=== PATIENT | male | born 1950 | race Caucasian/White ===

== ENCOUNTER 2021-12-15 15:27 | Outpatient (CLI) | payer OTHER, SELFPAY ==
[2021-12-15 12:39] LABS: Chloride* 103 mmol/L (96-114); Potassium* 4.4 mmol/L (3.6-5.1); Sodium* 139 mmol/L (135-149)
[2021-12-15 12:42] LABS: Carbon Dioxide* 25 mmol/L (20-32); Creatinine* 0.8 mg/dL (0.5-1.5); Estimated Glomerular Filt Rate 95 ml/min
[2021-12-15 12:43] LABS: Blood Urea Nitrogen* 23 mg/dL (7-30); Calcium* 9.6 mg/dL (8.4-10.6); Glucose* 96 mg/dL (60-115); Uric Acid* 3.3 mg/dL (2.2-8.4)
[2021-12-15 13:15] LABS: PSA Diagnostic* 0.13 ng/mL (0.10-4.00)
== END 2021-12-15 15:28 | disposition home or self-care (01) ==
PROVIDERS: PCP Internal Medicine; Visit Provider Internal Medicine
DX: Z00.00 Encounter for general adult medical examination without abnormal findings (principal); M10.9 Gout, unspecified; I10 Essential (primary) hypertension; C61 Malignant neoplasm of prostate
CPT/HCPCS: 80048; 84153; 84550

== ENCOUNTER 2022-01-23 13:42 | Outpatient (RCR) | payer OTHER, MEDICARE, SELFPAY ==
--- NOTE | 2022-01-24 11:10 | PT.OPEX ---
[facility] Eval Start: 01/23/22 15:29 Freq: Status: Active Protocol: Document 01/23/22 15:30 SASHA (Rec: 01/23/22 15:33 SASHA [id number]) E-signed By Luis Miller DPT, MS Physical Therapy Outpatient Evaluation Insurance Information Recert Due Date 04/23/22 Insurance Name Medicare B Medical Diagnosis Hip pain, right; right thigh pain Subjective Subjective Pt is an otherwise healthy 71 y.o. male who presents to PT with c/o of chronic B (R>L) hip pain of insidious origin 6 -8 months ago. Pt describes sharp, deep ache across lateral R hip with sleeping on his side and occasionally 1- 2x per week while walking later in the day. Describes active lifestyle walking 12-14 ,000 steps per day and working out on his elliptical and rowing machine for 30-40 minutes total. Finds himself limping with extended walking. Concerned PT won?t be helpful since he has mild - mod hip OA and due to active lifestyle . PMH includes skin CA currently in remission. AGGR factors: extended walking, sleeping B sides. ALLEV factors: ice, rest. Pain Comments -08/19 Current Work Status Retired Occupation Retired [employer] professor Precautions Therapy Limitations/Systems Review Not Limited Objective Functional Test Performed & Score LEFS 22 Assessment Assessment/Impression Pt displays signs and symptoms consistent with R greater trochanteric bursitis and ITB syndrome. + recreation of pain with palpation to R greater trochanter with 1+ edema. Objectively pt displays decreased B LE flexibility, B (R>L) LE and core weakness, and imbalance. Notable weakness found in B gluteus medius. He responded well to stretching, balance and strengthening exercises with minimal hip sxs following today?s session. He will benefit from continued skilled therapy to address these limitations. Primary Functional Limitations Extended walking, sleeping B sides Plan of Care Rehabilitation Potential Excellent Physical Therapy Goals Short-term goals to be completed in 4 weeks: 1. Pt will display improved overall B LE strength as evidenced by performing >12 SLR of good quality to improve jose l to daily activities. 2. Pt will report improved quality of sleep waking <2x per night due to R hip pain. Long-term goals to be completed in 10 weeks: 1. Pt will be independent and compliant with HEP 2. Pt will display improved R hip ABD and ext strength >/= 4 +/5 to improve ability to exercise and perform daily activities. 3. Pt will be able to return to walking >15 minutes with no elevation in R hip pain to improve tolerance to daily activities. 4. Pt will report >75% improvement in LEFS questionnaire to significantly improve jose l to daily activities. Coordination/Communication With Referral Source Treatment Plan/Direct Interventions Neuromuscular Re-ed, Therapeutic Exercises Frequency/Duration 1x per week for at least 6-10 visits, decreasing visit frequency, as able. Patient Will Be Discharged From Therapy Completion of LTG(s),Skills Plateau,Independent w/HEP, Independently Progressing Evaluation Billing Untimed Code Treatment Minutes 28 Complexity Moderate Certification Information Initial Certification Date 01/23/22 Ending Certification Date 04/23/22 Provider Signature Shows Agreement With POC & Medical Necessity Physician Signature & Date Requested Please Sign/Date Here Physician Comment/Change : Physician NPI Number #
== END 2022-09-28 23:59 | disposition home or self-care (01) ==
PROVIDERS: PCP Internal Medicine; Visit Provider Internal Medicine
DX: M25.551 Pain in right hip (principal); M25.561 Pain in right knee; Z51.89 Encounter for other specified aftercare
CPT/HCPCS: 97110; 97162

== ENCOUNTER 2022-05-17 05:21 | Emergency (ER) | payer OTHER, SELFPAY ==
[2022-05-17] VITALS (17 sets, daily range): BP systolic 117–132; BP diastolic 74–85; PULSE 47–53; TEMP 36.6; O2SAT 97–99
--- NOTE | 2022-05-17 06:00 | CRLHL7_ITS ---
For Patients: As a result of the Century Cures Act, medical imaging exams and procedure reports are released immediately into your electronic medical record. You may view this report before your referring provider. If you have questions, please contact your health care provider. Indication: Chest pain Technique: Chest 2 views Comparison: Chest x-ray 09/12/2022 Findings/Impression: Cardiovascular and mediastinum: Normal heart size. Atherosclerosis. Lungs and pleural spaces: Lungs are clear. No sign of infiltrate or mass. No sign of pleural effusion. No pneumothorax. Mild hyperinflation. Bones and soft tissues: Attachment screw at the inferior margin of the left glenoid. Dictated by Foster Kimble MD @ 05/17/2022 7:09:57 AM (Electronically Signed)
--- NOTE | 2022-05-17 06:02 | ED.GENADULT ---
HPI - General Adult General Chief complaint: Chest Pain Stated complaint: Chest pain Time Seen by Provider: 05/17/22 05:22 Source: patient and family Mode of arrival: ambulatory History of Present Illness HPI narrative: 72-year-old nonsmoker with no prior cardiac history with a history of hypertension presents with chest pain 2/10. Chest pain started at around 4:30 a.m. this morning, not yesterday evening as noted in the nursing notes. Chest pain was present upon awakening. Patient is an early riser and got up in was planning to have coffee when he noted pain in the left arm and chest area. It was accompanied by a feeling of significant nausea and slight lightheadedness. This dissipated quickly but then his right chest began to ache. There was no shortness of breath, no syncope, no feelings of irregular heart rate or abnormal heart rhythm. He took some Tylenol and his pain has improved significantly. Pain is currently 2/10 was probably a 6 to 7/10 at most early this morning. Pain does not radiate. No prior history of similar symptoms, no prior cardiac history. No prior stress testing. Has not taken aspirin. No history of DVT nor PE, does not take any anticoagulants. No recent chest trauma. Cannot reproduce chest pain with palpation. No fevers or recent illness. No bowel changes, no recent medication changes. He does have a family history in grandparents but at advanced ages. Socially, he is a nonsmoker, denies significant alcohol intake, also exercises daily. Past medical history notable for hypertension, gout. Surgical history is notable for cervical spine surgery, appendectomy, shoulder surgery, prostate cancer surgery. He has also had lithotripsy for kidney stones. His own medications are atenolol for hypertension and allopurinol for gout. ROS is notable for the cardiac and chest symptoms as described above, otherwise notable for the nausea which has now resolved. Otherwise negative times 12 systems. Related Data Home Medications Medication Instructions Recorded Confirmed multivitamin 1 tab PO QAM 12/19/21 12/19/21 Previous Rx's Medication Instructions Recorded atenolol 50 mg tablet 50 mg PO QDAY #90 tabs 12/19/21 allopurinol 100 mg tablet 400 mg PO DAILY #360 tabs 03/23/22 Allergies Allergy/AdvReac Type Severity Reaction Status Date / Time No Known Drug Allergies Allergy Verified 12/19/21 07:41 [facility] Medical History History of dysthymia History of migraine Transient global amnesia Surgical History Bladder neck contracture Carpal tunnel syndrome of left wrist (2019) History of appendectomy History of basal cell carcinoma of skin History of cervical spinal surgery History of left inguinal hernia repair History of radical prostatectomy History of shoulder surgery History of squamous cell carcinoma of skin Family History Mother Colon cancer Breast cancer Uterine cancer Social History Smoking Status: Never smoker Do you use any of these nicotine containing products: None Second hand tobacco smoke exposure: No How often do you have a drink containing alcohol: never AUDIT-C Alcohol total score: 0 Little interest or pleasure in doing things: not at all Feeling down, depressed, or hopeless: not at all Exam Const: Vital Signs, click to edit/add: Vital Signs - 24 hr 05/17/22 05:25 05/17/22 05:30 05/17/22 05:31 Temperature 97.8 F Pulse Rate Pulse Rate [Pulse Oximeter] 53 L Blood Pressure 124/85 132/84 Blood Pressure [Le ft Upper Arm] 124/85 Pulse Oximetry 97 Oxygen Delivery Me thod Room Air 05/17/22 05:34 05/17/22 05:45 05/17/22 05:47 Temperature Pulse Rate 51 L 49 L 49 L Pulse Rate [Pulse Oximeter] Blood Pressure 130/83 Blood Pressure [Le ft Upper Arm] Pulse Oximetry 97 98 98 Oxygen Delivery Me thod 05/17/22 06:00 05/17/22 06:02 05/17/22 06:17 Temperature Pulse Rate 49 L 52 L 48 L Pulse Rate [Pulse Oximeter] Blood Pressure 125/78 Blood Pressure [Le ft Upper Arm] Pulse Oximetry 97 99 98 Oxygen Delivery Me thod Documenting provider has reviewed patient's vital signs: yes Common normals: no apparent distress General appearance: cooperative, comfortable and well kempt Other: Good historian HENMT: Common normals: normocephalic and head/scalp atraumatic Head and scalp: normocephalic and atraumatic Face and sinus: normal facial exam Mouth: oral and palatal mucosa normal Throat: posterior oropharynx normal Eye: Common normals: conjunctivae normal General eye: normal appearance of both eyes Conjunctiva: conjunctiva(e) normal Neck & C-Spine: Common normals: full ROM and no lymphadenopathy Chest: Common normals: inspection of chest normal and palpation of chest normal Resp: Common normals: normal respiratory effort, no use of accessory muscles and clear to auscultation bilaterally Effort & inspection: able to speak in complete sentences Auscultation: clear to auscultation bilaterally Cardio: Common normals: regular rate, regular rhythm, S1 normal heart sound, S2 normal heart sound, no murmurs and peripheral pulses 2+ throughout Rate: regular rate Rhythm: regular rhythm Heart sounds: S1 normal and S2 normal Peripheral pulses: pulses 2+ throughout GI: Common normals: Normal to inspection, nondistended, normoactive bowel sounds present, soft to palpation, non-tender, no hepatosplenomegaly and no masses Palpation: soft and no hepatosplenomegaly Extremity: Common normals: normal to inspection and no pedal edema Neuro: Gait (neuro): normal gait Motor exam: strength 5/5 throughout, no tremor noted and no movement abnormalities noted Psych: Appearance: well kempt Activity/motor behavior: appropriate eye contact Mood and affect: euthymic mood Insight: insight good Judgement: judgment good Skin: Common normals: no rashes or lesions noted General skin exam: no rashes or lesions noted Course Vital Signs Vital signs: Initial Vital Signs Temperature 97.8 F 05/17/22 05:25 Temperature Source Temporal Artery Scan 05/17/22 05:25 Pulse Rate 53 L 05/17/22 05:25 Blood Pressure 124/85 05/17/22 05:25 Blood Pressure Mean 98 05/17/22 05:25 Pulse Oximetry 97 05/17/22 05:25 Oxygen Delivery Method 05/17/22 05:25 Vital Signs Temperature 97.8 F 05/17/22 05:25 Pulse Rate 53 L 05/17/22 05:25 Blood Pressure 124/85 05/17/22 05:25 Pulse Oximetry 97 05/17/22 05:25 Oxygen Delivery Method 05/17/22 05:25 Temperature 97.8 F 03/08/23 05:25 Pulse Rate 48 L 05/17/22 06:17 Blood Pressure 125/78 05/17/22 06:02 Pulse Oximetry 98 05/17/22 06:17 Oxygen Delivery Method 05/17/22 05:25 Medical Decision Making MDM Narrative Medical decision making narrative: Patient does have risk factor of hypertension age and gender for heart disease. Recommend cardiac enzymes, EKG, chest x-ray and cardiac monitoring. He will receive aspirin. Since his pain has almost completely resolved, will withhold nitroglycerin but patient informed that if his pain does worsen to let us know and I would like to try this intervention. Patient is noted to be bradycardic as low as 47 on the monitors, tend to hover around 50. This could be some mild symptomatic bradycardia. If his troponins are negative, we should consider a reduction of his atenolol and primary care follow-up. He would benefit from an outpatient stress test as well. Update: Repeat troponin is also negative at 3+ hours from symptom onset. His symptoms have completely resolved. He remains bradycardic from 48 to the low 50s. We discussed lab findings, x-ray findings, all reassuring. I let him know that I do think that his symptoms this morning were related to mildly symptomatic bradycardia and I would like for him to stop his atenolol and monitor her symptoms for a few days, following up with his primary care provider to further discuss options. He will let me know that he does like being on the atenolol because his migraines have improved significantly. Propranolol may be a better option or Coreg instead. I do trust his primary care provider's judgment in making changes to this if they see fit. Patient will record his blood pressures and bring these to his follow-up appointment. Lab Data Lab results reviewed: Yes I reviewed the patient's lab results Labs: Lab Results 05/17/22 05/17/22 05/17/22 Range/Units 05:35 05:35 05:35 D-Dimer Quant (PE/DVT) 0.30 (0.00-0.50) ug/ml Sodium 140 (135-149) mmol/L Potassium 3.9 (3.6-5.1) mmol/L Chloride 106 (96-114) mmol/L Carbon Dioxide 29 (20-32) mmol/L BUN 17 (7-30) mg/dL Creatinine 0.8 (0.5-1.5) mg/dL Estimated GFR 94 ml/min Glucose 103 (60-115) mg/dL Calcium 9.0 (8.4-10.6) mg/dL Total Bilirubin 0.8 (0.1-1.5) mg/dL AST 32 (12-35) U/L ALT 26 (4-50) U/L Alkaline Phosphatase 75 (40-150) U/L Troponin I < 0.01 L (0.01-0.04) ng/mL C-Reactive Protein < 0.5 L (0.5-1.0) mg/dL NT-Pro-B Natriuret Pep 62 pg/mL Total Protein 7.2 (6.0-8.3) g/dL Albumin 4.4 (3.3-5.0) g/dL POC Troponin I 0.00 L (0.01-0.04) ng/ml 05/17/22 Range/Units 07:15 D-Dimer Quant (PE/DVT) (0.00-0.50) ug/ml Sodium (135-149) mmol/L Potassium (3.6-5.1) mmol/L Chloride (96-114) mmol/L Carbon Dioxide (20-32) mmol/L BUN (7-30) mg/dL Creatinine (0.5-1.5) mg/dL Estimated GFR ml/min Glucose (60-115) mg/dL Calcium (8.4-10.6) mg/dL Total Bilirubin (0.1-1.5) mg/dL AST (12-35) U/L ALT (4-50) U/L Alkaline Phosphatase (40-150) U/L Troponin I (0.01-0.04) ng/mL C-Reactive Protein (0.5-1.0) mg/dL NT-Pro-B Natriuret Pep pg/mL Total Protein (6.0-8.3) g/dL Albumin (3.3-5.0) g/dL POC Troponin I 0.00 L (0.01-0.04) ng/ml ECG Data Attestation: I personally reviewed and interpreted this ECG as follows: Prior ECG tracings: not available for review Interpretation: Sinus bradycardia with rate 51. Normal axis. Good R-wave progression. No ST or T-wave abnormalities. Discharge Plan Discharge Clinical Impression: Bradycardia, Chest pain Patient Disposition: Home w/ Parent or Adult Condition: Improved Instructions: Chest Pain (DC) Additional Instructions: As we discussed, there are no signs of a heart attack today. This is good news. We also did not see any signs of kidney disease, electrolyte abnormality, anemia, infection, heart failure, blood clots or other worrisome finding. As we discussed, I do think that your symptoms this morning are concerning and they are most likely consistent with side effects of your atenolol. I do understand that it has been helpful for migraine prevention for you but it may no longer be the right dose or medication from this family to treat your blood pressure. I would like for you to stop the medicine for the next week and monitor your symptoms and blood pressure twice daily at home. I would like for you to make a follow-up with your primary care provider sometime in the next 3-7 days to recheck your symptoms and decide on management of your blood pressure. For most, these symptoms do continue for as long as they continue to take atenolol. If you have severe worsening of symptoms, please come back to the emergency department. Activity Level: No Restrictions and Activity as Tolerated Discharge Diet: Regular Prescriptions: No Action multivitamin Tablet 1 tab PO QAM atenolol 50 mg tablet 50 mg PO QDAY Qty: 90 3RF allopurinol 100 mg tablet 400 mg PO DAILY Qty: 360 3RF Follow Up/Referrals: Rose Mary Sneed MD [Primary Care Provider] - 7 Days (Blood pressure recheck, bradycardia) Stand Alone Forms: [employer] Info Instructions
[2022-05-17] MEDS: ASPIRIN 81 MG TAB.CHEW 324 MG PO (06:05)
[2022-05-17 06:07] LABS: Albumin* 4.4 g/dL (3.3-5.0); Chloride* 106 mmol/L (96-114)
[2022-05-17 06:08] LABS: Potassium* 3.9 mmol/L (3.6-5.1); Sodium* 140 mmol/L (135-149)
[2022-05-17 06:10] LABS: Creatinine* 0.8 mg/dL (0.5-1.5); Estimated Glomerular Filt Rate 94 ml/min
[2022-05-17 06:11] LABS: Alanine Aminotransferase* 26 U/L (4-50); Alkaline Phosphatase* 75 U/L (40-150); Aspartate Amino Transferase* 32 U/L (12-35); Bilirubin Total* 0.8 mg/dL (0.1-1.5); Blood Urea Nitrogen* 17 mg/dL (7-30); Carbon Dioxide* 29 mmol/L (20-32); Glucose* 103 mg/dL (60-115); Total Protein* 7.2 g/dL (6.0-8.3)
[2022-05-17 06:17] LABS: C Reactive Protein* < 0.5 mg/dL (0.5-1.0)
[2022-05-17 06:24] LABS: NT Pro B Type NatriureticPept* 62 pg/mL; Troponin I* < 0.01 ng/mL (0.01-0.04)
--- NOTE | 2022-05-17 07:27 | ED.NURSE ---
dr bergeron in room explaining plan. poc trop 0.00.
== END 2022-05-17 07:40 | disposition home or self-care (01) ==
PROVIDERS: Emergency Provider Family Medicine; PCP Internal Medicine
DX: R00.1 Bradycardia, unspecified (principal); R07.9 Chest pain, unspecified
CPT/HCPCS: 36415; 71046; 80053; 83880; 84484; 85379; 86140; 93005; 99283; 99284; 99285; A9270

== ENCOUNTER 2022-05-30 13:37 | Outpatient (CLI) | payer OTHER, SELFPAY ==
--- OUTSIDE RECORDS SUMMARY | 2022-05-30 13:39 | XMS_ITS | Continuity of Care Document ---
:1950 Author Organization [facility] Address [address] [place] [address] Phone Care Team Providers Name Role Phone Will Maximo HOGAN Unavailable Unavailable Advance Directives Directive Yes / No Effective Date File Name No Information Encounters Encounter Practice Location Reason(s) Diagnoses Date Provider Provide rs Description For Visit Copied on Encounter [facility] -2021 [facility] [address] [facility], [facility], [address] [facility] [place], [place], [place], [id number], [id number], [place]. [place] tel:[phone] tel:[phone] Family History Family Member Type Diagnosis Age At Onset No Information Payers Payer name Insurance type Covered republican ID Authorization(s ) No Information Social History Type Description Quantity Date Captured Comments Sex Male Smoking Status No Information Chief Complaint And Reason For Visit No Information Reason For Referral Reason For Referral No Information Plan Of Treatment Date Type Action Status No Information History Of Present Illness Encounter Date Complaint History Of Present I llness No Information Functional Status Date Functional Assessment No Information Instructions Date Instruction Additional Informati on No Information Assessments Type Assessment Date No Information Patient Care Teams Name Effective Dates (start - stop) Status M embers No Information
[2022-05-30 14:56] VITALS: BP 120/80; PULSE 73; RESP 18
--- NOTE | 2022-05-30 15:10 | W.PM.STED ---
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 He is exercised for a total time of 9 minutes, achieved a metabolic equivalent of 10.5 Mets with a maximum heart rate of 143 which is 113% of the target, conditioning was felt to be excellent, he did not develop chest pain shortness of breath or any other anginal equivalent symptoms. Review of the tracing post test shows no ST wave changes suggestive of ischemia, and he did not have any dysrhythmias Impression: Negative electrographic portion of stress echo test. Follow up suggested: Await for echo images these will be read by Cardiology, clinical correlation with these will be needed, patient left this testing facility in excellent condition. No complication
== END 2022-05-30 15:00 | disposition home or self-care (01) ==
LOC: STRESS 13:38
PROVIDERS: PCP Internal Medicine; Visit Provider Family Medicine
DX: R07.9 Chest pain, unspecified (principal)
CPT/HCPCS: 93016; 93325; 93351

== ENCOUNTER 2022-06-01 09:11 | Emergency (ER) | payer OTHER, SELFPAY ==
[2022-06-01] VITALS (8 sets, daily range): BP systolic 121–167; BP diastolic 67–93; PULSE 59–71; RESP 14–18; TEMP 36.7; O2SAT 97–99; BMI 26.5
[2022-06-01 09:48] LABS: Basophils Absolute Auto 0.02 K/uL (0.00-0.30); Basophils Percent Auto 0.3 % (0.0-3.0); Eosinophils Percent Auto 1.6 % (0.0-7.0); Hematocrit 44.2 % (37.0-53.0); Hemoglobin* 14.6 gm/dL (13.5-17.5); Immature Granulocytes Abs Auto 0.01 K/uL (0.00-0.30); Immature Granulocytes Pct Auto 0.2 %; Lymphocytes Percent Auto 27.3 % (20-44); Mean Corpuscular HGB Conc 33 gm/dL (32-36); Mean Corpuscular Hemoglobin 31 pg (26-34); Mean Corpuscular Volume 93 fL (80-100); Neutrophils Absolute Auto 3.84 K/uL (1.7-7.0); Neutrophils Percent Auto 61.6 % (42.0-72.0); RDW Coefficient of Variation % 12.5 % (11.5-15.5); Red Blood Count 4.77 m/uL (4.30-5.90); White Blood Count* 6.23 K/uL (4.50-11.00)
--- NOTE | 2022-06-01 10:01 | CRLHL7_ITS ---
For Patients: As a result of the Century Cures Act, medical imaging exams and procedure reports are released immediately into your electronic medical record. You may view this report before your referring provider. If you have questions, please contact your health care provider. Indication: Dilated ascending aorta, recurring chest and back pain Technique: Volumetric multidetector CT images of the chest were obtained after the administration of IV contrast. 95 cc Isovue 370 low osmolar intravenous contrast Comparison: None available. Findings: The thoracic inlet and thyroid gland are unremarkable. The thoracic aorta demonstrates aneurysmal dilatation and is otherwise unopacified measuring up to 4.9 x 4.8 centimeters in greatest dimension. There is no central filling defect to suggest pulmonary embolism. There is no mediastinal, hilar or axillary adenopathy. There is mild central bronchial thickening. There is bibasilar atelectasis and parenchymal scar. There is no dense consolidation, effusion or pneumothorax. There is no evidence of pulmonary mass or suspicious pulmonary nodule. The partially visualized upper abdomen demonstrates cystic change of the right kidney and left liver lobe. The thoracic vertebral body heights are grossly maintained with minimal endplate Schmorl`s defects. There is no significant spondylolisthesis or displaced fracture. Impression: Demonstration of ascending thoracic aortic aneurysm measuring 4.9 x 4.8 centimeters. The thoracic aorta is not opacified secondary to contrast bolus timing. If there is concern for filling defect within the aorta, follow-up with CTA of the aorta. Otherwise, no evidence of filling defect within the pulmonary vasculature to suggest pulmonary embolus. Minimal basilar atelectasis. No dense consolidation. Please note that all CT scans at this facility use dose modulation, iterative reconstruction, and/or weight-based dosing when appropriate to reduce radiation dose to as low as reasonably achievable. Dictated by Ricky Peacock MD @ 06/01/2022 1:22:39 PM (Electronically Signed)
--- NOTE | 2022-06-01 10:03 | ED.GENADULT ---
HPI - General Adult General Time Seen by Provider: 10:03 Date Seen: 06/01/22 Chief complaint: Chest Pain Stated complaint: chest pain Time Seen by Provider: 06/01/22 09:58 Source: patient Mode of arrival: ambulatory Limitations: no limitations History of Present Illness HPI narrative: Tommie is a 72-year-old male past medical history includes cervical spine surgery, left-sided shoulder surgery, nephrolithiasis, erectile dysfunction, hypertension, prostate cancer presents emergency department via with chest pain. Patient states that around 4:30 a.m. this morning he was having some coffee and does developed some substernal chest pain, dull ache, radiated to his left shoulder, this lasted about 1 hour, shoulder pain lasted a few seconds, he denied any diaphoresis, nausea vomiting, shortness of breath, neck pain jaw pain or headache. No lightheadedness or dizziness. Patient was seen here 2 weeks ago for the same, again at 4:30 a.m. prior to having any coffee, developed some substernal chest pain rated crosses chest, to his left arm, he did get diaphoretic and was nauseous. EKG, troponins were negative he was set up for an outpatient stress Echo which was normal, he did have a dilated ascending aortic 4.5 cm which is chronic. Patient denies any pain at this time, yesterday he did well, he did have an episode 2 days after his visit from the emergency department 2 weeks ago some nonexertional substernal chest pain. No history of any CAD or stroke. No other concerns at this time. Related Data Home Medications Medication Instructions Recorded Confirmed multivitamin 1 tab PO QAM 12/19/21 05/22/22 nitroglycerin 0.4 mg sublingual 0.4 mg sublingual DAILY PRN 05/22/22 05/22/22 tablet Previous Rx's Medication Instructions Recorded allopurinol 100 mg tablet 400 mg PO DAILY #360 tabs 03/23/22 Allergies Allergy/AdvReac Type Severity Reaction Status Date / Time No Known Drug Allergies Allergy Verified 05/22/22 09:55 Review of Systems Status of ROS: Reports: 10 or more systems reviewed and unremarkable except as noted in History and below [facility] Medical History History of dysthymia ?Z86.59 - Personal history of other mental and behavioral disorders (ICD-10) History of migraine ?Z86.69 - Personal history of other diseases of the nervous system and sense organs (ICD-10) Transient global amnesia ?G45.4 - Transient global amnesia (ICD-10) Surgical History Bladder neck contracture ?N32.0 - Bladder-neck obstruction (ICD-10) Carpal tunnel syndrome of left wrist (2019) ?G56.02 - Carpal tunnel syndrome, left upper limb (ICD-10) History of appendectomy ?Z90.49 - Acquired absence of other specified parts of digestive tract (ICD-10) History of basal cell carcinoma of skin ?Z85.828 - Personal history of other malignant neoplasm of skin (ICD-10) History of cervical spinal surgery ?Z98.890 - Other specified postprocedural states (ICD-10) History of left inguinal hernia repair ?Z98.890 - Other specified postprocedural states (ICD-10) ?Z87.19 - Personal history of other diseases of the digestive system (ICD-10) History of radical prostatectomy ?Z90.79 - Acquired absence of other genital organ(s) (ICD-10) History of shoulder surgery ?Z98.890 - Other specified postprocedural states (ICD-10) History of squamous cell carcinoma of skin ?Z85.828 - Personal history of other malignant neoplasm of skin (ICD-10) Family History Mother Colon cancer Breast cancer Uterine cancer Social History Smoking Status: Never smoker Do you use any of these nicotine containing products: None Second hand tobacco smoke exposure: No How often do you have a drink containing alcohol: never AUDIT-C Alcohol total score: 0 Non-prescribed substance use: denies use Little interest or pleasure in doing things: not at all Feeling down, depressed, or hopeless: not at all Exam Narrative: Exam Narrative: General: No obvious distress sitting comfortably, nontoxic in appearance HEENT: Tympanic membranes within normal limits bilateral oropharynx is clear moist, pupils equal round reactive to light Neck: Supple full range of motion, nontender to palpation Lungs: Clear to auscultation bilaterally Heart: Normal sinus rhythm S1-S2 Abdomen: Soft nontender Muscle skeletal: +5 strength upper and lower extremity Neuro: Alert awake and oriented x3 Const: Vital Signs, click to edit/add: Vital Signs - 24 hr 06/01/22 09:17 06/01/22 10:03 06/01/22 10:32 Temperature 98.1 F Pulse Rate 65 Pulse Rate [Right Pulse Oximeter] 61 Respiratory Rate 18 Blood Pressure 133/85 Blood Pressure [Ri ght Upper Arm] 167/67 H Pulse Oximetry 97 97 99 Oxygen Delivery Me thod Room Air 06/01/22 11:02 Temperature Pulse Rate 59 L Pulse Rate [Right Pulse Oximeter] Respiratory Rate 14 Blood Pressure 125/86 Blood Pressure [Ri ght Upper Arm] Pulse Oximetry 98 Oxygen Delivery Me thod Course Course Hospital Course: 9:30 AM: AIDET performed, workup will include EKG, troponin, CBC, CMP, INR and imaging including CTA chest angiogram based on recent stress echo showing dilated ascending aorta, patient is pain-free at this time, his EKG shows a normal sinus rhythm, low-voltage QRS, cannot rule out anterior infarct seen on previous, no acute ectopy or ST changes compared to previous. Differential diagnosis include CAD/mi/PE/pneumothorax/pneumonia, aortic dissection, STEMI versus NSTEMI as well as pericarditis myocarditis chest wall pain GERD esophageal rupture. Reevaluation(s) Reevaluation #1: EKG was unchanged from previous, troponin negative, plan would be to do a CTA chest PE angiogram rule out dissection which is less likely since patient is pain free, was able to speak to Cardiology [facility] over the next few days he will be set up for a CT coronary artery imaging, he reviewed his recent stress echo which is high quality, his 30 day risk is low, this was discussed with patient and . Plan to repeat troponin I. Patient is still pain free, D-dimer normal at 0.32, CBC metabolic panel unchanged from previous. EKG showed a normal sinus rhythm, cannot rule out anterior infarct age undetermined but seen on previous, no acute changes from 2 weeks ago. Time: 11:12 Reevaluation #2: CTA chest angiogram: Impression: Demonstration of ascending thoracic aortic aneurysm measuring 4.9 x 4.8 centimeters. The thoracic aorta is not opacified secondary to contrast bolus timing. If there is concern for filling defect within the aorta, follow-up with CTA of the aorta. Otherwise, no evidence of filling defect within the pulmonary vasculature to suggest pulmonary embolus. Minimal basilar atelectasis. No dense consolidation. HEART score for major cardiac events: History: +1 EC Age:+2 Risk factors: +1 Initial Troponin: 0 4 points, moderate score, risk of MACE 12-16% Patient and updated on his imaging results, no concerns regarding dissection at this time or PE, patient doing well, ECG was unchanged, D-dimer negative, Troponin was negative, repeat showed no changes, spoke with Cardiology [facility], he reviewed the recent stress echo, HEART score, labs and imaging, recommended discharge as patient is low risk on stress echo, he will reach out to his primary and to set up a outpatient coronary artery CT scan at [facility] and cardiology follow up. This was discussed with patient and and they were in agreement with discharge, he should also follow up with history primary care provider in the next 7-10 days. . Time: 13:30 Vital Signs Vital signs: Initial Vital Signs Respiratory Effort Normal, Spontaneous, Non-Labored 06/01/22 09:11 Respiratory Depth Normal 06/01/22 09:11 Respiratory Pattern Normal 06/01/22 09:11 Vital Signs Temperature 98.1 F 06/01/22 09:17 Pulse Rate 61 06/01/22 09:17 Respiratory Rate 18 06/01/22 09:17 Blood Pressure 167/67 H 06/01/22 09:17 Pulse Oximetry 97 06/01/22 09:17 Oxygen Delivery Method Room Air 06/01/22 09:17 Temperature 98.1 F 06/01/22 09:17 Pulse Rate 71 06/01/22 13:32 Respiratory Rate 14 06/01/22 11:02 Blood Pressure 140/79 H 06/01/22 13:32 Pulse Oximetry 97 06/01/22 13:32 Oxygen Delivery Method Room Air 06/01/22 09:17 Medical Decision Making Lab Data Labs: Lab Results 06/01/22 06/01/22 06/01/22 Range/Units 08:25 09:25 12:20 WBC 6.23 (4.50-11.00) K/uL RBC 4.77 (4.30-5.90) m/uL Hgb 14.6 (13.5-17.5) gm/dL Hct 44.2 (37.0-53.0) % MCV 93 (80-100) fL MCH 31 (26-34) pg MCHC 33 (32-36) gm/dL RDW Coeff of Dionne 12.5 (11.5-15.5) % Plt Count 220 (140-440) K/uL Neut % (Auto) 61.6 (42.0-72.0) % Lymph % (Auto) 27.3 (20-44) % [place] % (Auto) 9.0 (0.0-11.0) % Eos % (Auto) 1.6 (0.0-7.0) % Baso % (Auto) 0.3 (0.0-3.0) % Neut # (Auto) 3.84 (1.7-7.0) K/uL Lymph # (Auto) 1.70 (0.90-2.90) K/uL [place] # (Auto) 0.60 (0.00-0.90) K/UL Eos # (Auto) 0.10 (0.00-0.50) K/uL Baso # (Auto) 0.02 (0.00-0.30) K/uL Diff Slide Review Acceptable Review (Acceptable) INR 0.93 (0.91-1.10) D-Dimer Quant (PE/DVT) 0.32 (0.00-0.50) ug/ml Sodium 140 (135-149) mmol/L Potassium 4.4 (3.6-5.1) mmol/L Chloride 106 (96-114) mmol/L Carbon Dioxide 27 (20-32) mmol/L BUN 16 (7-30) mg/dL Creatinine 0.8 (0.5-1.5) mg/dL Estimated Creat Clear 64.60 Estimated GFR 94 ml/min Glucose 90 (60-115) mg/dL Calcium 9.2 (8.4-10.6) mg/dL Total Bilirubin 0.8 (0.1-1.5) mg/dL AST 39 H (12-35) U/L ALT 24 (4-50) U/L Alkaline Phosphatase 65 (40-150) U/L Troponin I < 0.01 L (0.01-0.04) ng/mL Total Protein 7.6 (6.0-8.3) g/dL Albumin 4.5 (3.3-5.0) g/dL POC Troponin I 0.00 L (0.01-0.04) ng/ml Discharge Plan Discharge Clinical Impression: Chest pain, Aneurysm, thoracic aortic Patient Disposition: Home, Self-Care Condition: Improved Instructions: Chest Pain (ED) Additional Instructions: Follow-up with [facility] Cardiology for outpatient CT coronary arteries imaging, Follow-up with primary care provider over the next 7-10 days. Return precautions given. Activity Level: No Restrictions Prescriptions: No Action multivitamin Tablet 1 tab PO QAM nitroglycerin 0.4 mg tablet, sublingual 0.4 mg sublingual DAILY PRN allopurinol 100 mg tablet 400 mg PO DAILY Qty: 360 3RF Follow Up/Referrals: Rose Mary Sneed MD [Primary Care Provider] - Stand Alone Forms: [employer] Info Instructions
[2022-06-01 10:09] LABS: Albumin* 4.5 g/dL (3.3-5.0); Chloride* 106 mmol/L (96-114); Sodium* 140 mmol/L (135-149)
[2022-06-01 10:10] LABS: Potassium* 4.4 mmol/L (3.6-5.1)
[2022-06-01 10:12] LABS: Alanine Aminotransferase* 24 U/L (4-50); Alkaline Phosphatase* 65 U/L (40-150); Aspartate Amino Transferase* 39 U/L (12-35); Bilirubin Total* 0.8 mg/dL (0.1-1.5); Blood Urea Nitrogen* 16 mg/dL (7-30); Carbon Dioxide* 27 mmol/L (20-32); Creatinine* 0.8 mg/dL (0.5-1.5); Estimated Glomerular Filt Rate 94 ml/min; Glucose* 90 mg/dL (60-115); Total Protein* 7.6 g/dL (6.0-8.3)
[2022-06-01 10:13] LABS: Calcium* 9.2 mg/dL (8.4-10.6)
[2022-06-01 10:17] LABS: Platelet Count* 220 K/uL (140-440); Slide Review Reflex Yes
[2022-06-01 10:21] LABS: Slide Review Acceptable Review (Acceptable)
[2022-06-01 10:42] LABS: INR 0.93 (0.91-1.10); Prothrombin Time 13.1 Seconds
--- OUTSIDE RECORDS SUMMARY | 2022-06-01 10:46 | XMS_ITS | Continuity of Care Document ---
Author Name Unknown Organization [facility] Address [address] [place] [id number] Phone Care Team Providers Care House Manager Name Role Phone Will MD RUSH, Maximo Unavailable Unavailabl e Advance Directives Directive Yes / No Effective Date File Name No Information Encounters Encounter Description Practice Location Reason(s) For Visit Diagnoses Date Provider Providers Copied on Encounter [facility], [address] [place] [address] [place], [place], [id number], [place] tel:[phone] [facility] No Information Will Maximo. [address] [facility] [place], [id number], [place]. tel:[phone] Family History Family Member Type Diagnosis Age At Onset No Information Payers Payer name Insurance type Covered republican ID Authoriza tion(s) No Information Social History Type Description Quantity Date Captured Comments Sex Male Smoking Status No Information Chief Complaint And Reason For Visit No Information Reason For Referral Reason For Referral No Information Plan Of Treatment Date Type Action Status No Information History Of Present Illness Encounter Date Complaint History Of Prese nt Illness No Information Functional Status Date Functional Assessmen t No Information Instructions Date Instruction Additional Infor mation No Information Assessments Type Assessment Date No Information Patient Care Teams Name Effective Dates (start - stop) Status Members No Information
[2022-06-01 11:40] LABS: D Dimer Quantitative* 0.32 ug/ml (0.00-0.50)
[2022-06-01 13:01] LABS: Troponin I* < 0.01 ng/mL (0.01-0.04)
== END 2022-06-01 13:54 | disposition home or self-care (01) ==
PROVIDERS: Emergency Provider Student in an Organized Health Care Education/Training Program; PCP Internal Medicine
DX: I71.20 Thoracic aortic aneurysm, without rupture, unspecified (principal); R07.9 Chest pain, unspecified
CPT/HCPCS: 36415; 71260; 80053; 84484; 85025; 85379; 85610; 93005; 94761; 99283; 99284; 99285; Q9967